=== PATIENT | male | born 1975 | race Caucasian/White ===

== ENCOUNTER 2018-05-11 04:50 | Inpatient (IN) | payer MEDICAID ==
[~2018-05-11] VITALS: Ht 185.4 cm; Wt 82.6 kg
[~2018-05-11 04:50] MED LIST: FLUO-191 PO
[2018-05-11 05:39] LABS: BASOPHILS % (AUTO) 0.7 % (0.0-2.0); HEMATOCRIT 41.1 % (41-53); HEMOGLOBIN 13.7 g/dL (13.5-17.5); LYMPHOCYTES # (AUTO) 2.5 K/uL (1.0-4.8); LYMPHOCYTES % (AUTO) 22.3 % (22.0-44.0); MEAN CORPUSCULAR HEMOGLOBIN 28.8 pg (26.0-34.0); MEAN CORPUSCULAR HGB CONC 33.4 G/dL (31.0-37.0); MEAN CORPUSCULAR VOLUME 86 fL (80-100); MONOCYTES # (AUTO) 1.4 K/uL (0.1-1.0); MONOCYTES % (AUTO) 12.2 % (2.0-9.0); NEUTROPHILS # (AUTO) 7.2 K/uL (1.8-7.7); NEUTROPHILS % (AUTO) 63.8 % (40.0-70.0); PLATELET COUNT (AUTO) 305 K/uL (150-450); RED BLOOD CELL COUNT(AUTO) 4.77 MIL/uL (4.50-5.90); RED CELL DISTRIBUTION WIDTH 12.8 % (11.5-14.5)
[2018-05-11 05:47] LABS: ANION GAP 6 mmol/L (8-16); CALCIUM, TOTAL 9.1 mg/dL (8.8-10.5); CARBON DIOXIDE 31 mmol/L (22-29); CHLORIDE 99 mmol/L (98-107); CREATININE 0.92 mg/dL (0.60-1.30); GLOMERULAR FILTR. RATE CALC > 60 mL/min (>60); GLUCOSE,RANDOM 101 mg/dL (70-110); SODIUM SERUM 136 mmol/L (136-145); UREA NITROGEN, BLOOD 17 mg/dL (7-18)
[2018-05-11 05:56] LABS: ALANINE AMINOTRANSFERASE 32 U/L (12-78); ALBUMIN 3.8 g/dL (3.4-5.0); ALKALINE PHOSPHATASE 81 U/L (46-116); ASPARTATE AMINOTRANSFERASE 27 U/L (15-37); BILIRUBIN,TOTAL 0.8 mg/dL (0.1-1.0); TOTAL PROTEIN, SERUM 8.1 g/dL (6.4-8.2)
[2018-05-11] MEDS ORDERED: LORazepam 2 MG TABLET PO ONE (07:15)
[2018-05-11] MEDS ORDERED: ZOLPIDEM TARTRATE 10 MG TABLET PO PRN (07:45)
[2018-05-11] MEDS ORDERED: HALOPERIDOL 5 MG TABLET PO PRN (07:45)
[2018-05-11 08:24] LABS: APPEARANCE,URINE CLOUDY (CLEAR); BILIRUBIN,URINE NEGATIVE (NEGATIVE); GLUCOSE, URINE (UA) NEGATIVE (NEGATIVE); KETONES,URINE NEGATIVE (NEGATIVE); LEUKOCYTE ESTERASE ,URINE NEGATIVE (NEGATIVE); NITRATE,URINE NEGATIVE (NEGATIVE); OCCULT BLOOD,URINE NEGATIVE (NEGATIVE); PH,URINE 7.5 (5.0-8.0); PROTEIN,URINE TRACE (NEGATIVE); UROBILINOGEN,URINE 0.2 mg/dL (<=1.0)
[2018-05-11 08:29] LABS: AMPHET/METH SCREEN,URINE POSITIVE (NEGATIVE); BARBITURATE SCREEN, URINE NEGATIVE (NEGATIVE); BENZODIAZEPINES SCREEN,URINE NEGATIVE (NEGATIVE); CANNABINOID SCREEN,URINE NEGATIVE (NEGATIVE); COCAINE SCREEN,URINE NEGATIVE (NEGATIVE); METHADONE SCREEN, URINE NEGATIVE (NEGATIVE); OPIATE SCREEN,URINE POSITIVE (NEGATIVE); PHENCYCLIDINE SCREEN,URINE NEGATIVE (NEGATIVE)
[2018-05-11 08:40] LABS: AMORPHOUS SEDIMENT,UR Moderate /LPF (None Seen); BACTERIA,URINE None Seen /HPF (None Seen); RBC,URINE None Seen /HPF (0-2); SQUAMOUS EPITHELIAL CELL,UR Few /LPF (None Seen); WBC,URINE 0-2 /HPF (0-5)
[2018-05-11 17:07] VITALS: BP 120/95
[2018-05-11] MEDS ORDERED: NICOTINE 14 MG/24 HOUR PATCH TD PRN (17:45)
[2018-05-11] MEDS ORDERED: ALBUTEROL SULFATE HFA 90 MCG/PUFF 8 GM INHALER IH PRN (17:45)
[2018-05-11] MEDS ORDERED: LOPERAMIDE HCL 2 MG CAPSULE PO PRN (17:45)
[2018-05-11] MEDS ORDERED: ACETAMINOPHEN 325 MG TABLET PO PRN (17:45)
[2018-05-11] MEDS ORDERED: DOCUSATE SODIUM 100 MG CAPSULE PO PRN (17:45)
[2018-05-11] MEDS ORDERED: MAG HYDROX/AL HYDROX/SIMETH ES 30 ML SUSPENSION UDCUP PO PRN (17:45)
[2018-05-11] MEDS ORDERED: CloNIDine HCL 0.1 MG TABLET PO PRN (17:45)
[2018-05-11] MEDS ORDERED: IBUPROFEN 400 MG TABLET PO PRN (17:45)
[2018-05-11] MEDS ORDERED: PETROLATUM,WHITE 71 GM JELLY TP PRN (17:45)
[2018-05-11] MEDS ORDERED: MAGNESIUM HYDROXIDE SUSPENSION 30 ML UDCUP PO PRN (17:45)
[2018-05-11] MEDS ORDERED: ONDANSETRON HCL 4 MG TABLET PO PRN (17:45)
[2018-05-11] MEDS ORDERED: GuaiFENesin/D-METHORPHAN [SUGAR-FREE] 200-20MG/10 ML SYRUP UDCUP PO PRN (17:45)
[2018-05-11] MEDS: LORazepam 2 MG TABLET PO PRN (21:53)
[2018-05-12 00:30] VITALS: BP 128/71
[2018-05-12 08:18] VITALS: BP 139/71
[2018-05-12 08:53] LABS: FREE T4 (FREE THYROXINE) 1.05 ng/dL (0.76-1.46); THYROID STIMULATING HORMONE 2.15 uIU/mL (0.36-3.74)
[2018-05-12] MEDS: LORazepam 2 MG TABLET PO PRN (10:15)
[2018-05-12 16:17] VITALS: BP 118/74
[2018-05-13 00:24] VITALS: BP 136/75
[2018-05-13 08:28] VITALS: BP 140/67
[2018-05-13 16:17] VITALS: BP 136/72
[2018-05-14 00:45] VITALS: BP 131/77
[2018-05-14 08:31] VITALS: BP 123/66
[2018-05-14 16:12] VITALS: BP 116/60
[2018-05-15 04:20] VITALS: BP 120/81
[2018-05-15 08:30] VITALS: BP 126/65
[2018-05-15] MEDS: FLUoxetine HCL 20 MG CAPSULE PO SCH (13:42)
[2018-05-15 17:53] VITALS: BP 112/60
[2018-05-15] MEDS: LORazepam 2 MG TABLET PO PRN (18:39)
[2018-05-16 05:02] VITALS: BP 118/72
[2018-05-16 08:22] VITALS: BP 129/49
[2018-05-16] MEDS: FLUoxetine HCL 20 MG CAPSULE PO SCH (09:21)
[2018-05-16] MEDS: LORazepam 2 MG TABLET PO PRN ×2 (13:15→20:34)
[2018-05-16 16:18] VITALS: BP 128/80
[2018-05-17 03:57] VITALS: BP 119/82
[2018-05-17] MEDS: LORazepam 2 MG TABLET PO PRN (04:07)
[2018-05-17 09:11] VITALS: BP 117/64
[2018-05-17 09:12] VITALS: BP 117/64
[2018-05-17] MEDS: FLUoxetine HCL 20 MG CAPSULE PO SCH (09:36)
[2018-05-17 16:44] VITALS: BP 110/62
[2018-05-18 03:45] VITALS: BP 115/64
[2018-05-18 08:14] VITALS: BP 128/66
[2018-05-18 08:15] VITALS: BP 128/66
[2018-05-18 08:18] VITALS: BP 119/74
[2018-05-18] MEDS: FLUoxetine HCL 20 MG CAPSULE PO SCH (08:29)
[2018-05-18] MEDS: LORazepam 2 MG TABLET PO PRN (13:55)
[2018-05-18 16:43] VITALS: BP 133/72
[2018-05-19 04:20] VITALS: BP 112/76
[2018-05-19] MEDS: LORazepam 2 MG TABLET PO PRN ×2 (04:28→10:42)
[2018-05-19] MEDS: FLUoxetine HCL 20 MG CAPSULE PO SCH (08:52)
[2018-05-19] MEDS ORDERED: FLUO-191 PO (11:09)
== END 2018-05-19 13:00 | disposition home or self-care (01) | DRG 750 ==
LOC: EMS 04:50 → B2S 15:47
PROVIDERS: ADMIT Psychiatry & Neurology Psychiatry; ATTEND Psychiatry & Neurology Psychiatry
DX: F25.9 Schizoaffective disorder, unspecified (principal); R45.851 Suicidal ideations; Z59.0 Homelessness; Z91.14 Patient's other noncompliance with medication regimen; D72.829 Elevated white blood cell count, unspecified; F43.10 Post-traumatic stress disorder, unspecified; G47.00 Insomnia, unspecified; F17.210 Nicotine dependence, cigarettes, uncomplicated; F15.90 Other stimulant use, unspecified, uncomplicated; F11.90 Opioid use, unspecified, uncomplicated; F19.10 Other psychoactive substance abuse, uncomplicated; Z81.8 Family history of other mental and behavioral disorders; Z91.5 Personal history of self-harm; Z71.51 Drug abuse counseling and surveillance of drug abuser
CPT/HCPCS: 84439; 84443; G0480

== ENCOUNTER 2018-08-24 16:42 | Emergency (ER) | payer MEDICAID ==
[~2018-08-24] VITALS: Ht 185.4 cm; Wt 86.4 kg
[2018-08-24] MEDS ORDERED: ZIPR20CA2 PO (17:01)
[2018-08-24] MEDS ORDERED: VENL50TA44 PO (17:01)
[2018-08-24] MEDS ORDERED: LORA2TAB2 PO (17:01)
[2018-08-24 18:10] LABS: BASOPHILS % (AUTO) 0.7 % (0.0-2.0); EOSINOPHILS % (AUTO) 0.8 % (1.0-6.0); HEMOGLOBIN 14.2 g/dL (13.5-17.5); LYMPHOCYTES # (AUTO) 2.5 K/uL (1.0-4.8); LYMPHOCYTES % (AUTO) 24.2 % (22.0-44.0); MEAN CORPUSCULAR HEMOGLOBIN 28.1 pg (26.0-34.0); MEAN CORPUSCULAR HGB CONC 33.9 G/dL (31.0-37.0); MEAN CORPUSCULAR VOLUME 83 fL (80-100); MONOCYTES # (AUTO) 0.9 K/uL (0.1-1.0); NEUTROPHILS # (AUTO) 6.6 K/uL (1.8-7.7); NEUTROPHILS % (AUTO) 65.3 % (40.0-70.0); PLATELET COUNT (AUTO) 364 K/uL (150-450); RED BLOOD CELL COUNT(AUTO) 5.06 MIL/uL (4.50-5.90); RED CELL DISTRIBUTION WIDTH 13.9 % (11.5-14.5)
[2018-08-24 18:20] LABS: ANION GAP 11 mmol/L (8-16); CALCIUM, TOTAL 9.4 mg/dL (8.8-10.5); CARBON DIOXIDE 28 mmol/L (22-29); CHLORIDE 102 mmol/L (98-107); CREATININE 1.16 mg/dL (0.60-1.30); GLOMERULAR FILTR. RATE CALC > 60 mL/min (>60); GLUCOSE,RANDOM 113 mg/dL (70-110); POTASSIUM 4.2 mmol/L (3.5-5.1); SODIUM SERUM 141 mmol/L (136-145); UREA NITROGEN, BLOOD 19 mg/dL (7-18)
[2018-08-24 18:26] LABS: ALANINE AMINOTRANSFERASE 27 U/L (12-78); ALBUMIN 4.3 g/dL (3.4-5.0); ALKALINE PHOSPHATASE 88 U/L (46-116); ASPARTATE AMINOTRANSFERASE 20 U/L (15-37); BILIRUBIN,TOTAL 0.4 mg/dL (0.1-1.0); TOTAL PROTEIN, SERUM 8.7 g/dL (6.4-8.2)
[2018-08-24] MEDS ORDERED: LORazepam 1 MG TABLET PO ONE (19:00)
[2018-08-24 21:13] VITALS: BP 170/97
== END 2018-08-24 22:05 | disposition home or self-care (01) ==
LOC: EMS 16:42
DX: F41.9 Anxiety disorder, unspecified (principal); F15.90 Other stimulant use, unspecified, uncomplicated; F32.9 Major depressive disorder, single episode, unspecified; F20.9 Schizophrenia, unspecified; F17.220 Nicotine dependence, chewing tobacco, uncomplicated
CPT/HCPCS: 36415; 80053; 85025; 99284; G0480

== ENCOUNTER 2018-08-25 01:29 | Emergency (ER) | payer MEDICAID ==
[~2018-08-25] VITALS: Ht 185.4 cm; Wt 86.4 kg
[~2018-08-25 01:29] MED LIST changes: +LORA2TAB2 PO; +VENL50TA44 PO; +ZIPR20CA2 PO
[2018-08-25 03:05] VITALS: BP 144/93
== END 2018-08-25 03:06 | disposition home or self-care (01) ==
LOC: EMS 01:34
DX: F15.10 Other stimulant abuse, uncomplicated (principal); F32.9 Major depressive disorder, single episode, unspecified; F41.9 Anxiety disorder, unspecified; F20.9 Schizophrenia, unspecified; F17.220 Nicotine dependence, chewing tobacco, uncomplicated